=== PATIENT | female | born 1970 | race African-American/Black ===

== ENCOUNTER 2018-02-13 22:06 | Emergency (ER) | payer BC, SELFPAY ==
[2018-02-13 23:12] LABS: Bilirubin Negative (Negative); Blood, Urine Negative (Negative); Clarity CLOUDY (Clear); Glucose, Urine (Dipstick) Negative (Negative); Leukocyte Negative (Negative); Nitrite Negative (Negative); Protein, Urine (Dipstick) Negative (Neg-Trace); Specific Gravity, Urine 1.024 (1.002-1.036); pH, Urine 7.5 (5.0-9.0)
== END 2018-02-13 23:45 | disposition home or self-care (01) ==
LOC: ERS 22:06
DX: S29.012A Strain of muscle and tendon of back wall of thorax, initial encounter (principal); E03.9 Hypothyroidism, unspecified; X58.XXXA Exposure to other specified factors, initial encounter
CPT/HCPCS: 81003; 99283